=== PATIENT | female | born 1975 | race Caucasian/White ===

== ENCOUNTER 2017-08-12 18:30 | Emergency (ER) | payer OTHER ==
[2017-08-12] MEDS ORDERED: LIDOCAINE 1% MPF 5 ML VIAL ONE (20:24)
[2017-08-12] MEDS ORDERED: ONDANSETRON 4 MG (ODT) TAB ONE (20:27)
--- NOTE | 2017-08-12 20:53 | EDPHYS ---
Physician Documentation [facility] Name: Talat Cortez Age: 42 yrs Sex: Female : 1975 Arrival Date: 08/12/2017 Time: 18:33 Bed 11 Private MD: GALEN CHOI ED Physician Valentín Sousa HPI: 08/12 21:04 This 42 yrs old Female presents to ER via Ambulatory with complaints of kb Finger laceration. 21:04 The patient has a laceration related to: handling garbage, broken picture frame, kb occurred at work, and there are no complicating factors. The injury was accidental. The laceration(s) is(are) located on the dorsal aspect of middle phalanx of right middle finger. Onset: The symptoms/episode began/occurred just prior to arrival. Associated signs and symptoms: The patient has no apparent associated signs or symptoms. The patient has not experienced similar symptoms in the past. The patient has not recently seen a physician. 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 - Social history:: Smoking status: Patient/guardian denies using tobacco. ROS: 21:04 Constitutional: Negative for fever, chills, and weight loss, Cardiovascular: Negative kb for chest pain, palpitations, and edema, Respiratory: Negative for shortness of breath, cough, wheezing, and pleuritic chest pain, Abdomen/GI: Negative for abdominal pain, nausea, vomiting, diarrhea, and constipation, Neuro: Negative for headache, weakness, numbness, tingling, and seizure. 21:04 Skin: Positive for laceration(s), of the dorsal aspect of middle phalanx of right middle finger. Exam: 21:04 Constitutional: This is a well developed, well nourished patient who is awake, alert, kb and in no acute distress. Head/Face: Normocephalic, atraumatic. Chest/axilla: Normal chest wall appearance and motion. Nontender with no deformity. No lesions are appreciated. Cardiovascular: Regular rate and rhythm with a normal S1 and S2. No gallops, murmurs, or rubs. Normal PMI, no JVD. No pulse deficits. Respiratory: Lungs have equal breath sounds bilaterally, clear to auscultation and percussion. No rales, rhonchi or wheezes noted. No increased work of breathing, no retractions or nasal flaring. Abdomen/GI: Soft, non-tender, with normal bowel sounds. No distension or tympany. No guarding or rebound. No evidence of tenderness throughout. Neuro: Awake and alert, GCS 15, oriented to person, place, time, and situation. Cranial nerves II-XII grossly intact. Motor strength 5/5 in all extremities. Sensory grossly intact. Cerebellar exam normal. Normal gait. 21:04 Skin: injury, laceration(s), the wound is approximately 2.5 cm(s), of the dorsal aspect of middle phalanx of right middle finger, that can be described as clean, no foreign body, irregular, without bleeding. Vital Signs: 19:08 BP 115 / 78; Pulse 81; Resp 16; Temp 97.6; Pulse Ox 97% on R/A; Weight 79.38 kg; Height aa1 5 ft. 6 in. (167.64 cm); 19:08 Body Mass Index 28.25 (79.38 kg, 167.64 cm) aa1 Laceration: 20:51 Wound Repair of 2.5cm ( 1.0in ) subcutaneous laceration to dorsal aspect of middle kb phalanx of right middle finger. Irregularly shaped.. Distal neuro/vascular/tendon intact. Anesthesia: Wound infiltrated with 2 mls of 1% lidocaine. Wound prep: Moderate cleansing with hibiclenz by me, Wound irrigation with saline by ga. Skin closed with 4 5-0 Prolene using interrupted sutures and sterile technique. Dressed with Neosporin, bandaid. Patient tolerated well. MDM: 19:41 Patient medically screened. kb 20:51 Data reviewed: vital signs, nurses notes. Data interpreted: Pulse oximetry: on room air kb is 97 %. Interpretation: normal. Counseling: I had a detailed discussion with the patient and/or guardian regarding: the historical points, exam findings, and any diagnostic results supporting the discharge/admit diagnosis, the need for outpatient follow up, a family practitioner, to return to the emergency department if symptoms worsen or persist or if there are any questions or concerns that arise at home. 08/12 20:07 Order name: Prolene, Sutures; Complete Time: 20:48 kb 08/12 20:07 Order name: Dressing - Wound; Complete Time: 20:47 kb 08/12 20:07 Order name: Gloves, Sterile; Complete Time: 20:47 kb 08/12 20:07 Order name: Setup Suture Tray; Complete Time: 20:47 kb Administered Medications: 20:48 Drug: Lidocaine (1 %) 1 vials {Note: used by OPEN WINDER at bedside.} Volume: 5 ml; Route: lk1 Infiltration; 21:13 Follow up: Response: No adverse reaction lk1 Disposition: 08/13 00:01 Co-signature as Attending Physician, Valentín Sousa MD I agree with the assessment and kdr plan of care. Disposition: 08/12/17 20:52 Discharged to Home. Impression: Laceration without foreign body of right middle finger without damage to nail. - Condition is Stable. - Discharge Instructions: Laceration Care, Adult, [id number]. - Medication Reconciliation Form, Thank You Letter, Antibiotic Education, Prescription Opioid Use form. - Follow up: Emergency Department; When: As needed; Reason: Worsening of condition. Follow up: Private Physician; When: 2 - 3 days; Reason: Recheck today's complaints, Continuance of care, Re-evaluation by your physician. - Notes: Have sutures removed in 10 days Keep clean and dry Watch for signs of infection as discussed Signatures: Laurel Velez, MIGUEL ALFORD-Yudy Shaffer, RN RN aa1 Valentín Sousa MD MD [facility] Milvia Cesar, RN RN lk1
--- NOTE | 2017-08-12 20:53 | ER ---
Nurse's Notes [facility] Name: Talat Cortez Age: 42 yrs Sex: Female : 1975 Arrival Date: 08/12/2017 Time: 18:33 Bed 11 Private MD: GALEN CHOI Diagnosis: Laceration without foreign body of right middle finger without damage to nail Presentation: 08/12 19:05 Presenting complaint: Patient states: pt cut her R middle finger on a broken piece of aa1 glass. Laceration noted with bleeding controlled. Transition of care: patient was not received from another setting of care. Onset of symptoms was August 12, 2017. Initial Sepsis Screen: Does the patient meet any 2 criteria? No. Patient's initial sepsis screen is negative. Does the patient have a suspected source of infection? No. Patient's initial sepsis screen is negative. Care prior to arrival: None. 19:05 Method Of Arrival: Ambulatory aa1 19:05 Acuity: LAVELL 4 aa1 Triage Assessment: 19:08 General: Appears in no apparent distress. comfortable, Behavior is calm, cooperative, aa1 appropriate for age. 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 - Social history:: Smoking status: Patient/guardian denies using tobacco. Screenin:12 Abuse screen: Denies threats or abuse. Denies injuries from another. Nutritional lk1 screening: No deficits noted. Tuberculosis screening: No symptoms or risk factors identified. Fall Risk None identified. Assessment: 20:00 General: Appears in no apparent distress. Behavior is cooperative, appropriate for age, lk1 anxious. Pain: Complains of pain in right hand Pain currently is 3 out of 10 on a pain scale. Neuro: Level of Consciousness is awake, alert, obeys commands, Oriented to person, place, time, situation. Cardiovascular: Capillary refill is brisk Patient's skin is warm and dry. Respiratory: Airway is patent Respiratory effort is even, unlabored, Respiratory pattern is regular, symmetrical. Derm: Wound noted right hand. Injury Description: Laceration sustained to dorsal aspect of middle phalanx of right middle finger is clean, 0.5 to 2.5 cm long, not bleeding, was sustained 30-60 minutes ago. a small amount of bleeding noted at this time. Vital Signs: 19:08 BP 115 / 78; Pulse 81; Resp 16; Temp 97.6; Pulse Ox 97% on R/A; Weight 79.38 kg; Height aa1 5 ft. 6 in. (167.64 cm); 19:08 Body Mass Index 28.25 (79.38 kg, 167.64 cm) aa1 ED Course: 18:33 Patient arrived in ED. mr 18:33 GALEN CHOI is Private Physician. mr 19:07 Triage completed. aa1 19:08 Arm band placed on left wrist. Patient placed in waiting room, Patient notified of wait aa1 time. 19:31 Laurel Velez FNP-C is [facility]. kb 19:31 Valentín Sousa MD is Attending Physician. kb 20:22 Milvia Cesar, RORY is Primary Nurse. lk1 21:12 Assist provider with laceration repair on dorsal aspect of middle phalanx of right lk1 middle finger that was 2.5 cm. or less using sutures. Set up tray. Performed by Laurel RIVERA Dressed with band aid, Neosporin, Patient tolerated well. Patient did not have IV access during this emergency room visit. 21:15 Patient has correct armband on for positive identification. Bed in low position. Call lk1 light in reach. Adult w/ patient. Administered Medications: 20:48 Drug: Lidocaine (1 %) 1 vials {Note: used by PLASTIC MACHINE OPERATOR at bedside.} Volume: 5 ml; Route: lk1 Infiltration; 21:13 Follow up: Response: No adverse reaction lk1 Outcome: 20:52 Discharge ordered by . kb 21:14 Discharged to home ambulatory, with family. lk1 21:14 Condition: good 21:14 Discharge instructions given to patient, family, Instructed on discharge instructions, follow up and referral plans. medication usage, safety practices, wound care, Demonstrated understanding of instructions, follow-up care, medications, wound care. 21:15 Patient left the ED. lk1 Signatures: Laurel Velez FNP-C BUTCHER SUPERVISOR-Ckb Yudy Waggoner, RN RN aa1 Phoebe Montejo Leah, RN RN lk1
== END 2017-08-12 21:15 | disposition home or self-care (01) ==
LOC: ER 18:30
PROC: 0JQJ0ZZ Repair Right Hand Subcutaneous Tissue and Fascia, Open Approach (ICD-10-PCS; principal; 2017-08-12)
DX: S61.212A Laceration without foreign body of right middle finger without damage to nail, initial encounter (principal); W25.XXXA Contact with sharp glass, initial encounter; Y93.9 Activity, unspecified; Y92.9 Unspecified place or not applicable; Y99.0 Civilian activity done for income or pay
CPT/HCPCS: 99283

== ENCOUNTER 2017-10-13 17:52 | Emergency (ER) | payer OTHER ==
[2017-10-13] MEDS ORDERED: ONDANSETRON 4 MG (ODT) TAB ONE (18:56)
[2017-10-13 19:27] LABS: Urine Blood NEGATIVE (NEG); Urine Glucose NEGATIVE (NEG); Urine Protein NEGATIVE (NEG); Urine Specific Gravity >1.030 (1.005-1.030); Urine pH 6.5 (5.0-7.0)
--- NOTE | 2017-10-13 20:18 | EDPHYS ---
Physician Documentation [facility] Name: Talat Cortez Age: 42 yrs Sex: Female : 1975 Arrival Date: 10/13/2017 Time: 17:59 Bed 27 Private MD: GALEN CHOI ED Physician Josse Luis HPI: 10/13 18:47 This 42 yrs old Female presents to ER via Ambulatory with complaints of cp Nausea, Sore Throat, Dizziness. 18:47 The patient presents to the emergency department with nausea, that is mild. cp 18:47 Onset: The symptoms/episode began/occurred last night. Associated signs and symptoms: cp Pertinent negatives: abdominal pain, constipation, diarrhea, fever, vomiting. 18:47 Severity of symptoms: in the emergency department the symptoms are unchanged despite cp home interventions. 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 - Social history:: Smoking status: Patient/guardian denies using tobacco. - Ebola Screening: : No symptoms or risks identified at this time. ROS: 18:50 Constitutional: Negative for body aches, chills, fever, poor PO intake. cp 18:50 Eyes: Negative for injury, pain, redness, and discharge. cp 18:50 ENT: Positive for sore throat, Negative for drainage from ear(s), ear pain, difficulty swallowing, difficulty handling secretions. 18:50 Respiratory: Negative for cough. 18:50 Abdomen/GI: Positive for nausea, Negative for abdominal pain, vomiting, diarrhea, constipation. 18:50 Skin: Negative for cellulitis, rash. 18:50 Neuro: Positive for dizziness, Negative for altered mental status, headache, weakness. 18:50 All other systems are negative. Exam: 19:00 Constitutional: The patient appears in no acute distress, alert, awake, non-toxic, well cp developed, well nourished. 19:00 Head/Face: Normocephalic, atraumatic. cp 19:00 Eyes: Periorbital structures: appear normal, Conjunctiva: normal, no exudate, no injection, Sclera: no appreciated abnormality, Lids and lashes: appear normal, bilaterally. 19:00 ENT: External ear(s): are unremarkable, Ear canal(s): are normal, clear, TM's: bulging, is not appreciated, bilaterally, dullness, bilaterally, erythema, is not appreciated, bilaterally, Nose: is normal, Mouth: Lips: moist, Oral mucosa: pink and intact, moist, Posterior pharynx: Airway: normal, Tonsils: are normal in appearance, Uvula: midline, swelling, is not appreciated, erythema, is not appreciated, exudate, is not appreciated, Voice: is normal. 19:00 Neck: ROM/movement: is normal, is supple, without pain, no range of motions limitations, no meningismus, no nuchal rigidity, Lymph nodes: no appreciated lymphadenopathy. 19:00 Chest/axilla: Inspection: normal, Palpation: is normal, no crepitus, no tenderness. 19:00 Cardiovascular: Rate: normal, Rhythm: regular. 19:00 Respiratory: the patient does not display signs of respiratory distress, Respirations: normal, no use of accessory muscles, no retractions, no splinting, no tachypnea, labored breathing, is not present, Breath sounds: are clear throughout, no decreased breath sounds, no stridor, no wheezing. 19:00 Abdomen/GI: Exam negative for discomfort, distension, guarding, Inspection: abdomen appears normal. 19:00 Skin: cellulitis, is not appreciated, no rash present. Vital Signs: 18:10 BP 118 / 72; Pulse 73; Resp 16 S; Temp 98.5(TE); Pulse Ox 100% on R/A; Weight 80.74 kg aa5 (R); Height 5 ft. 6 in. (167.64 cm) (R); 20:36 BP 124 / 74; Pulse 72; Resp 16; Pulse Ox 100% on R/A; rk2 18:10 Body Mass Index 28.73 (80.74 kg, 167.64 cm) aa5 MDM: 18:26 Patient medically screened. cp 19:00 Differential diagnosis: gastritis, viral gastroenteritis, gastroenteritis, influenza, cp strep. 20:16 Data reviewed: vital signs, nurses notes, lab test result(s), and as a result, I will cp discharge patient. 20:16 Counseling: I had a detailed discussion with the patient and/or guardian regarding: the cp historical points, exam findings, and any diagnostic results supporting the discharge/admit diagnosis, lab results, the need for outpatient follow up, a family practitioner, to return to the emergency department if symptoms worsen or persist or if there are any questions or concerns that arise at home. 10/13 18:09 Order name: Strep; Complete Time: 20:16 snw 10/13 18:43 Order name: Influenza Screen (a \T\ B); Complete Time: 20:16 cp 10/13 19:21 Order name: Urine Dipstick--Ancillary (enter results); Complete Time: 19:42 rg2 10/13 19:21 Order name: Urine --Ancillary (enter results); Complete Time: 19:42 rg2 10/13 19:56 Order name: Throat Culture [facility] 10/13 18:43 Order name: Urine Dipstick-Ancillary (obtain specimen); Complete Time: 19:16 10/13 18:43 Order name: Urine Test (obtain specimen); Complete Time: 19:16 cp Administered Medications: 18:54 Drug: Zofran 4 mg Route: PO; rk2 20:36 Follow up: Response: No adverse reaction; Nausea is decreased rk2 Disposition: 10/14 16:20 Co-signature as Attending Physician, Josse Luis MD I agree with the assessment and [facility] plan of care. Disposition: 10/13/17 20:17 Discharged to Home. Impression: Acute pharyngitis. - Condition is Stable. - Discharge Instructions: Nausea, Adult, Pharyngitis. - Prescriptions for Zofran 4 mg Oral Tablet - take 1 tablet by ORAL route every 12 hours As needed; 20 tablet. - Medication Reconciliation Form, Thank You Letter, Antibiotic Education, Prescription Opioid Use form. - Follow up: Private Physician; When: 1 - 2 days; Reason: Recheck today's complaints. - Problem is new. - Symptoms have improved. Signatures: Dispatcher [employer] Josse Marcus MD MD cha Calderon, Audri, RN RN aa5 Josse Morley PA PA cp Kidder, Rhonda RN RN rk2 Corrections: (The following items were deleted from the chart) 10/13 20:38 20:17 10/13/2017 20:17 Discharged to Home. Impression: Acute pharyngitis. Condition is rk2 Stable. Forms are Medication Reconciliation Form, Thank You Letter, Antibiotic Education, Prescription Opioid Use. Follow up: Private Physician; When: 1 - 2 days; Reason: Recheck today's complaints. Problem is new. Symptoms have improved. cp
--- NOTE | 2017-10-13 20:18 | ER ---
Nurse's Notes [facility] Name: Talat Cortez Age: 42 yrs Sex: Female : 1975 Arrival Date: 10/13/2017 Time: 17:59 Bed 27 Private MD: GALEN CHOI Diagnosis: Acute pharyngitis Presentation: 10/13 18:09 Presenting complaint: Patient states: sore throat, nausea, and body aches that began aa5 last night. Transition of care: patient was not received from another setting of care. Onset of symptoms was September 2017. Risk Assessment: Do you want to hurt yourself or someone else? Patient reports no desire to harm self or others. Initial Sepsis Screen: Does the patient meet any 2 criteria? No. Patient's initial sepsis screen is negative. Does the patient have a suspected source of infection? No. Patient's initial sepsis screen is negative. Care prior to arrival: None. 18:09 Method Of Arrival: Ambulatory aa5 18:09 Acuity: LAVELL 4 aa5 Triage Assessment: 18:32 General: Appears in no apparent distress. well nourished, Behavior is calm, rk2 cooperative. Pain: Complains of pain in throat. EENT: Throat is pink. Neuro: Level of Consciousness is alert, obeys commands, Oriented to person, place, time, situation. Respiratory: Airway is patent Respiratory effort is even, unlabored, Respiratory pattern is regular, symmetrical. GI: Reports nausea. Derm: Skin is pink, warm \T\ dry. 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 - Social history:: Smoking status: Patient/guardian denies using tobacco. - Ebola Screening: : No symptoms or risks identified at this time. Screenin:31 Abuse screen: Denies threats or abuse. Nutritional screening: No deficits noted. rk2 Tuberculosis screening: No symptoms or risk factors identified. Fall Risk None identified. Vital Signs: 18:10 BP 118 / 72; Pulse 73; Resp 16 S; Temp 98.5(TE); Pulse Ox 100% on R/A; Weight 80.74 kg aa5 (R); Height 5 ft. 6 in. (167.64 cm) (R); 20:36 BP 124 / 74; Pulse 72; Resp 16; Pulse Ox 100% on R/A; rk2 18:10 Body Mass Index 28.73 (80.74 kg, 167.64 cm) aa5 ED Course: 17:59 Patient arrived in ED. mr 18:00 GALEN CHOI is Private Physician. mr 18:09 Arm band placed on. aa5 18:10 Triage completed. aa5 18:11 Fadumo Barrios, RN is Primary Nurse. rk2 18:26 Josse Morley PA is PHCP. cp 18:26 Josse Luis MD is Attending Physician. cp 18:32 Patient has correct armband on for positive identification. Bed in low position. Call rk2 light in reach. 20:38 No provider procedures requiring assistance completed. Patient did not have IV access rk2 during this emergency room visit. Administered Medications: 18:54 Drug: Zofran 4 mg Route: PO; rk2 20:36 Follow up: Response: No adverse reaction; Nausea is decreased rk2 Outcome: 20:17 Discharge ordered by . cp 20:38 Discharged to home ambulatory. rk2 20:38 Condition: improved 20:38 Discharge instructions given to patient, Prescriptions given X 1. 20:38 Patient left the ED. rk2 Signatures: Phoebe Montejo mr AdamMarva, RN RN [facility] Josse Morley PA PA cp Fadumo Barrios, RN RN rk2
== END 2017-10-13 20:38 | disposition home or self-care (01) ==
LOC: ER 17:52
DX: J02.9 Acute pharyngitis, unspecified (principal); R11.0 Nausea; R42 Dizziness and giddiness
CPT/HCPCS: 81003; 81025; 87070; 87081; 87804; 99283

== ENCOUNTER 2018-01-30 08:00 | Emergency (ER) | payer OTHER ==
[2018-01-30] MEDS ORDERED: NA CHLORIDE 0.9% 1,000 ML ONE (08:41)
[2018-01-30] MEDS ORDERED: ONDANSETRON 4 MG/2 ML VIAL ONE ×2 (08:41→11:08)
[2018-01-30] MEDS ORDERED: FAMOTIDINE 20 MG/2 ML VIAL IV ONE (08:41)
[2018-01-30] MEDS ORDERED: MORPHINE 4 MG/ML SYR ONE (08:41)
[2018-01-30 09:01] LABS: Absolute Lymphocytes (CBC) 1.9 K/uL (0.7-4.9); Absolute Monocytes 0.5 K/uL (0.1-1.3); Absolute Neutrophil 4.7 K/uL (1.8-8.0); Basophils % 0.6 % (0-1.3); Hematocrit 41.4 % (36.0-45.0); Lymphocytes % 25.9 % (15.3-44.8); MCH 30.6 pg (27.0-35.0); MCV 88.4 fL (80-100); MPV 9.6 fL (7.6-11.3); Monocytes % 6.7 % (3.3-12.3); RBC Red Blood Cell Count 4.68 M/uL (3.86-4.86)
[2018-01-30 09:25] LABS: ALT/SGPT 24 U/L (12-78); AST/SGOT 15 U/L (15-37); Albumin 3.7 g/dL (3.4-5.0); Alkaline Phosphatase 50 U/L (45-117); BUN Blood Urea Nitrogen 8 mg/dL (7-18); Bicarbonate 30 mmol/L (21-32); Bilirubin Direct < 0.1 mg/dL (0-0.2); Bilirubin Total 0.3 mg/dL (0.2-1.0); Glucose Level 106 mg/dL (74-106); Lipase 149 U/L (73-393); Potassium 3.8 mmol/L (3.5-5.1); Sodium Level 143 mmol/L (136-145)
--- NOTE | 2018-01-30 10:09 | RAD REPORT ---
EXAM DESCRIPTION: CT - Abdomen Pelvis W Contrast - 01/30/2018 9:41 am CLINICAL HISTORY: Abdominal pain with vomiting and diarrhea for 2 days COMPARISON: none. TECHNIQUE: Computed axial tomography of the abdomen pelvis was obtained. 100 cc Isovue-300 was admin istered intravenously. Oral contrast was not requested which limits evaluation of bowel. All CT scans are performed using dose optimization technique as appropriate and may include automated exposure control or mA/KV adjustment according to patient size. FINDINGS: The liver, spleen, pancreas, adrenal and kidneys appear unremarkable. There is no evidence of diverticulitis. The appendix is normal caliber. It contains contrast. An IUD is in place. A 22 millimeter left ovarian cyst is present without significant free fluid. The wall of a loop of small bowel within the central mid to lower abdomen is thickened. IMPRESSION: Thickening of the wall of a loop of small bowel within the central mid to lower abdomen may indicate inflammation 22 millimeter left ovarian cyst without significant free-fluid.
[2018-01-30] MEDS ORDERED: KETOROLAC 30 MG/ML INJ ONE (10:19)
[2018-01-30] MEDS ORDERED: FENTANYL CITR 100 MCG/2 ML ONE (11:08)
--- NOTE | 2018-01-30 11:13 | EDPHYS ---
Physician Documentation [facility] Name: Talat Cortez Age: 42 yrs Sex: Female : 1975 Arrival Date: 01/30/2018 Time: 08:03 Bed 16 Private MD: GALEN CHOI ED Physician Valentín Sousa HPI: 01/30 08:47 This 42 yrs old Female presents to ER via Ambulatory with complaints of kdr Nausea/Vomiting, Headache. 08:47 The patient presents to the emergency department with nausea, that is moderate, kdr vomiting, that is intermittent, diarrhea, that is intermittent, abdominal pain, of the epigastric area, right upper quadrant and left upper quadrant. Onset: The symptoms/episode began/occurred gradually, 2 day(s) ago. Possible causes: unknown. The symptoms are aggravated by food , The symptoms are alleviated by nothing. Associated signs and symptoms: Pertinent positives: abdominal pain, anorexia, diarrhea, nausea, vomiting, Pertinent negatives: belching, constipation, dysuria, fever, GI bleeding, hematuria, vaginal discharge. Severity of symptoms: At their worst the symptoms were moderate severe just prior to arrival, in the emergency department the symptoms have improved. The patient has experienced similar episodes in the past, several times, but today's symptoms are worse, more frequent. The patient has not recently seen a physician. 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 - Social history:: Smoking status: Patient/guardian denies using tobacco, Patient/guardian denies using alcohol. - Ebola Screening: : No symptoms or risks identified at this time. ROS: 08:47 Constitutional: Negative for fever, chills, and weight loss, Eyes: Negative for injury, kdr pain, redness, and discharge, Neck: Negative for injury, pain, and swelling, Cardiovascular: Negative for chest pain, palpitations, and edema, Respiratory: Negative for shortness of breath, cough, wheezing, and pleuritic chest pain, Back: Negative for injury and pain, : Negative for injury, bleeding, discharge, and swelling, MS/Extremity: Negative for injury and deformity, Skin: Negative for injury, rash, and discoloration, Psych: Negative for depression, anxiety, suicide ideation, homicidal ideation, and hallucinations, Allergy/Immunology: Negative for hives, rash, and allergies, Endocrine: Negative for neck swelling, polydipsia, polyuria, polyphagia, and marked weight changes, Hematologic/Lymphatic: Negative for swollen nodes, abnormal bleeding, and unusual bruising. 08:47 Abdomen/GI: Positive for abdominal pain, nausea and vomiting, Negative for constipation, abdominal cramps, abdominal distension, anorexia, dysphagia, hematemesis, black/tarry stool, rectal pain, rectal bleeding, bowel incontinence. 08:47 Neuro: Positive for headache, Negative for altered mental status, dizziness, hearing loss, loss of consciousness, seizure activity, speech changes, syncope, tremor, visual changes, weakness. Exam: 08:47 Constitutional: This is a well developed, well nourished patient who is awake, alert, kdr and in mild distress. Head/Face: Normocephalic, atraumatic. Eyes: Pupils equal round and reactive to light, extra-ocular motions intact. Lids and lashes normal. Conjunctiva and sclera are non-icteric and not injected. Cornea within normal limits. Periorbital areas with no swelling, redness, or edema. Neck: Trachea midline, no thyromegaly or masses palpated, and no cervical lymphadenopathy. Supple, full range of motion without nuchal rigidity, or vertebral point tenderness. No Meningismus. Chest/axilla: Normal chest wall appearance and motion. Nontender with no deformity. No lesions are appreciated. Cardiovascular: Regular rate and rhythm with a normal S1 and S2. No gallops, murmurs, or rubs. Normal PMI, no JVD. No pulse deficits. Respiratory: Lungs have equal breath sounds bilaterally, clear to auscultation and percussion. No rales, rhonchi or wheezes noted. No increased work of breathing, no retractions or nasal flaring. Back: No spinal tenderness. No costovertebral tenderness. Full range of motion. Skin: Warm, dry with normal turgor. Normal color with no rashes, no lesions, and no evidence of cellulitis. MS/ Extremity: Pulses equal, no cyanosis. Neurovascular intact. Full, normal range of motion. Neuro: Awake and alert, GCS 15, oriented to person, place, time, and situation. Cranial nerves II-XII grossly intact. Motor strength 5/5 in all extremities. Sensory grossly intact. Cerebellar exam normal. Normal gait. Psych: Awake, alert, with orientation to person, place and time. Behavior, mood, and affect are within normal limits. 08:47 Abdomen/GI: Inspection: abdomen appears normal, Bowel sounds: active, Palpation: soft, mild abdominal tenderness, in the epigastric area, right upper quadrant and left upper quadrant. Vital Signs: 08:16 BP 104 / 58; Pulse 76; Resp 22; Temp 98.5(O); Pulse Ox 100% on R/A; Weight 79.38 kg; sv Height 5 ft. 6 in. (167.64 cm); Pain 9/10; 09:00 BP 92 / 71; Pulse 58; Resp 16; Pulse Ox 100% ; sv 11:10 BP 109 / 63; Pulse 54; Resp 16; Pulse Ox 100% on R/A; aj1 08:16 Body Mass Index 28.25 (79.38 kg, 167.64 cm) sv MDM: 08:47 Data reviewed: vital signs, nurses notes, lab test result(s), radiologic studies. kdr Counseling: I had a detailed discussion with the patient and/or guardian regarding: the historical points, exam findings, and any diagnostic results supporting the discharge/admit diagnosis, lab results, radiology results, the need for outpatient follow up. 11:11 Patient medically screened. [facility] 01/30 08:24 Order name: Basic Metabolic Panel; Complete Time: 10: kdr 01/30 08:24 Order name: CBC with Diff; Complete Time: 10: kdr 01/30 08:24 Order name: Creatinine for Radiology; Complete Time: 10: kdr 01/30 08:24 Order name: Hepatic Function; Complete Time: 10: kdr 01/30 08:24 Order name: Lipase; Complete Time: 10: kdr 01/30 08:26 Order name: CT Abd/Pelvis - W/Contrast; Complete Time: 10:19 kdr 01/30 08:24 Order name: IV Saline Lock; Complete Time: 09: kdr 01/30 08:24 Order name: Labs collected and sent; Complete Time: :08 kdr Administered Medications: 08:50 Drug: NS 0.9% 1000 ml Route: IV; Rate: 1 bolus; Site: left antecubital; sv 08:50 Drug: Zofran 4 mg Route: IVP; Site: left antecubital; sv 09:15 Follow up: Response: No adverse reaction sv 08:52 Drug: morphine 4 mg Route: IVP; Site: left antecubital; sv 09:15 Follow up: Response: No adverse reaction sv 08:54 Drug: Pepcid 20 mg Route: IVP; Site: left antecubital; sv 09:15 Follow up: Response: No adverse reaction sv 10:19 Drug: TORadol 30 mg Route: IVP; Site: left antecubital; aj1 11:06 Follow up: Response: No adverse reaction; Pain is decreased aj1 11:06 Drug: fentaNYL (PF) 50 mcg Route: IVP; Site: left antecubital; aj1 11:06 Drug: Zofran 4 mg Route: IVP; Site: left antecubital; aj1 Disposition: 01/30/18 11:11 Discharged to Home. Impression: Abdominal and pelvic pain, Colitis, Headache. - Condition is Stable. - Discharge Instructions: Nausea and Vomiting, Adult, [id number], Abdominal Pain, Adult, [id number], General Headache Without Cause, [id number], Colitis. - Prescriptions for Cipro 500 mg Oral Tablet - take 1 tablet by ORAL route every 12 hours for 7 days; 14 tablet. Flagyl 500 mg Oral Tablet - take 1 tablet by ORAL route every 6 hours for 7 days; 28 tablet. Pepcid 20 mg Oral Tablet - take 1 tablet by ORAL route every 12 hours for 10 days; 20 tablet. Zofran 4 mg Oral Tablet - take 1 tablet by ORAL route every 4-6 hours As needed; 16 tablet. Tylenol- Codeine #3 300-30 mg Oral Tablet - take 2 tablets by ORAL route every 6 hours As needed Take one to two tablets PO Q 4-6 hrs PRN pain; 20 tablet. - Medication Reconciliation Form, Thank You Letter, Antibiotic Education form. - Follow up: Private Physician; When: 2 - 3 days; Reason: If symptoms return, Further diagnostic work-up, Recheck today's complaints, Continuance of care, Re-evaluation by your physician. - Problem is new. - Symptoms have improved. Signatures: Dispatcher [employer] EDMS Digna Basurto RN RN aj1 Daina Jarrett RN RN sv Rittger, Kevin, MD MD [facility] Tori Borrego RN RN hb Corrections: (The following items were deleted from the chart) 11:28 11:11 01/30/2018 11:11 Discharged to Home. Impression: Abdominal and pelvic pain; hb Colitis; Headache. Condition is Stable. Forms are Medication Reconciliation Form, Thank You Letter, Antibiotic Education, Prescription Opioid Use. Follow up: Private Physician; When: 2 - 3 days; Reason: If symptoms return, Further diagnostic work-up, Recheck today's complaints, Continuance of care, Re-evaluation by your physician. Problem is new. Symptoms have improved. kdr
--- NOTE | 2018-01-30 11:13 | ER ---
Nurse's Notes [facility] Name: Talat Cortez Age: 42 yrs Sex: Female : 1975 Arrival Date: 01/30/2018 Time: 08:03 Bed 16 Private MD: GALEN CHOI Diagnosis: Abdominal and pelvic pain;Colitis;Headache Presentation: 01/30 08:14 Presenting complaint: Patient states: n/v/d/migraine, photophobia and neck \T\ back pain sv x 2 days. Transition of care: patient was not received from another setting of care. Onset of symptoms was January 28, 2018. Risk Assessment: Do you want to hurt yourself or someone else? Patient reports no desire to harm self or others. Initial Sepsis Screen: Does the patient meet any 2 criteria? No. Patient's initial sepsis screen is negative. Does the patient have a suspected source of infection? No. Patient's initial sepsis screen is negative. Care prior to arrival: None. 08:14 Method Of Arrival: Ambulatory sv 08:14 Acuity: LAVELL 3 sv Triage Assessment: 08:15 General: Appears in no apparent distress. uncomfortable, well developed, Behavior is sv cooperative, appropriate for age, crying. Pain: Complains of pain in face and left upper quadrant and right upper quadrant and epigastric area Pain currently is 9 out of 10 on a pain scale. Quality of pain is described as pressure, throbbing, Pain began 2-3 days ago. Is continuous, Aggravated by light Noted to be crying, Also complains of photophobia. EENT: No signs and/or symptoms were reported regarding the EENT system. Neuro: Level of Consciousness is awake, alert, obeys commands, Oriented to person, place, time, situation, Moves all extremities. Full function Gait is steady, Speech is normal, Facial symmetry appears normal, Reports headache photophobia. Respiratory: Respiratory effort is even, unlabored, Respiratory pattern is regular, symmetrical. GI: Reports diarrhea, nausea, vomiting. Derm: Skin is pink, warm \T\ dry. 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 - Social history:: Smoking status: Patient/guardian denies using tobacco, Patient/guardian denies using alcohol. - Ebola Screening: : No symptoms or risks identified at this time. Screenin:17 Abuse screen: Denies threats or abuse. Denies injuries from another. Nutritional sv screening: No deficits noted. Tuberculosis screening: No symptoms or risk factors identified. Fall Risk None identified. Assessment: 09:48 Reassessment: Patient appears in no apparent distress at this time. Patient and/or sv family updated on plan of care and expected duration. Pain level reassessed. Patient is alert, oriented x 3, equal unlabored respirations, skin warm/dry/pink. 10:18 Reassessment: Patient reports that her headache is getting severe again. Notified Dr. wojciech Sousa, order received. 10:20 General: Appears in no apparent distress. uncomfortable, Behavior is calm, cooperative, aj1 appropriate for age. Pain: Pain currently is 9 out of 10 on a pain scale. Neuro: Level of Consciousness is awake, alert, obeys commands, Oriented to person, place, time, situation, Speech is normal, Facial symmetry appears normal, Reports headache photophobia. Cardiovascular: Patient's skin is warm and dry. Respiratory: Airway is patent Respiratory effort is even, unlabored, Respiratory pattern is regular, symmetrical. GI: Abdomen is non-distended, Reports nausea. : No signs and/or symptoms were reported regarding the genitourinary system. EENT: No signs and/or symptoms were reported regarding the EENT system. Derm: No signs and/or symptoms reported regarding the dermatologic system. Skin is pink, warm \T\ dry. normal. Musculoskeletal: No signs and/or symptoms reported regarding the musculoskeletal system. Circulation, motion, and sensation intact. 11:07 Reassessment: Patient appears in no apparent distress at this time. Patient and/or aj1 family updated on plan of care and expected duration. Pain level reassessed. Patient is alert, oriented x 3, equal unlabored respirations, skin warm/dry/pink. Patient states that her pain has diminished since administration or IV toradol, currently rates her pain at a 4/10. States she would like to go ahead and take ordered Fentanyl and Zofran to get headache under control completely. Vital Signs: 08:16 BP 104 / 58; Pulse 76; Resp 22; Temp 98.5(O); Pulse Ox 100% on R/A; Weight 79.38 kg; sv Height 5 ft. 6 in. (167.64 cm); Pain 9/10; 09:00 BP 92 / 71; Pulse 58; Resp 16; Pulse Ox 100% ; sv 11:10 BP 109 / 63; Pulse 54; Resp 16; Pulse Ox 100% on R/A; aj1 08:16 Body Mass Index 28.25 (79.38 kg, 167.64 cm) sv ED Course: 08:03 Patient arrived in ED. as 08:04 GALEN CHOI is Private Physician. as 08:11 Valentín Sousa MD is Attending Physician. kdr 08:13 Daina Jarrett, RN is Primary Nurse. sv 08:15 Triage completed. sv 08:17 Arm band placed on. sv 08:17 Patient has correct armband on for positive identification. Bed in low position. Pulse sv ox on. NIBP on. Door closed. Lights dimmed. Warm blanket given. Head of bed elevated. 08:45 Initial lab(s) drawn, by me, sent to lab. Inserted saline lock: 20 gauge in left sv antecubital area, using aseptic technique. Blood collected. Flushed left antecubital with 5 ml normal saline. 09:40 CT completed. Patient tolerated procedure well. Patient moved to CT via wheelchair. Patient moved back from CT. 09:41 CT Abd/Pelvis - W/Contrast In Process Unspecified. EDMS 09:48 Awaiting re-evaluation by ER provider. sv 10:00 Report given to Digna VALADEZ. sv 11:27 No provider procedures requiring assistance completed. IV discontinued, intact, hb bleeding controlled, No redness/swelling at site. Pressure dressing applied. 19:04 Primary Nurse role handed off by Daina Jarrett, RORY sv Administered Medications: 08:50 Drug: NS 0.9% 1000 ml Route: IV; Rate: 1 bolus; Site: left antecubital; sv 08:50 Drug: Zofran 4 mg Route: IVP; Site: left antecubital; sv 09:15 Follow up: Response: No adverse reaction sv 08:52 Drug: morphine 4 mg Route: IVP; Site: left antecubital; sv 09:15 Follow up: Response: No adverse reaction sv 08:54 Drug: Pepcid 20 mg Route: IVP; Site: left antecubital; sv 09:15 Follow up: Response: No adverse reaction sv 10:19 Drug: TORadol 30 mg Route: IVP; Site: left antecubital; aj1 11:06 Follow up: Response: No adverse reaction; Pain is decreased aj1 11:06 Drug: fentaNYL (PF) 50 mcg Route: IVP; Site: left antecubital; aj1 11:06 Drug: Zofran 4 mg Route: IVP; Site: left antecubital; aj1 Outcome: 11:11 Discharge ordered by . kdr 11:27 Discharged to home ambulatory. hb 11:27 Condition: stable 11:27 Discharge instructions given to patient, Instructed on discharge instructions, follow up and referral plans. medication usage, Demonstrated understanding of instructions, follow-up care, medications, Prescriptions given X x 5 11:28 Patient left the ED. hb Signatures: Dispatcher [employer] EDDigna Valerio RN RN aj1 Daina Jarrett RN RN sv Rittger, Kevin, MD MD kdr Jones, Susan sj Martinez, Amelia as Baxter, Heather, RN RN hb
== END 2018-01-30 11:28 | disposition home or self-care (01) ==
LOC: ER 08:00
DX: K52.9 Noninfective gastroenteritis and colitis, unspecified (principal); R51 Headache
CPT/HCPCS: 36415; 74177; 80048; 80076; 83690; 85025; 96374; 96375; 99284; J2405 ×2; J3010; J7030; Q9967

== ENCOUNTER 2018-11-10 11:29 | Emergency (ER) | payer OTHER ==
--- NOTE | 2018-11-10 12:39 | RAD REPORT ---
EXAM DESCRIPTION: RAD - Foot Right 3 View - 11/10/2018 12:27 pm CLINICAL HISTORY: Pain;Swelling COMPARISON: <Comparisons> FINDINGS: Soft tissue swelling is seen about the great toe. No fracture is clearly seen. Small plant ar calcaneal spur.
--- NOTE | 2018-11-10 13:32 | EDPHYS ---
Physician Documentation [facility] Name: Talat Cortez Age: 43 yrs Sex: Female : 1975 Arrival Date: 11/10/2018 Time: 11:31 Bed 11 Private MD: ED Physician Nixon Amato HPI: 11/10 11:45 This 43 yrs old Female presents to ER via Ambulatory with complaints of Foot rn Injury. 11:45 The patient presents with an injury, pain. The complaints affect the right foot. rn Context: The problem was sustained outdoors, resulted from a heavy object falling, the patient can partially bear weight, the patient is able to ambulate. Onset: The symptoms/episode began/occurred just prior to arrival. Modifying factors: The symptoms are alleviated by nothing, the symptoms are aggravated by weight bearing, movement. Severity of symptoms: At their worst the symptoms were moderate, in the emergency department the symptoms are unchanged. The patient has not experienced similar symptoms in the past. 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 . 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 - Social history:: Smoking status: Patient/guardian denies using tobacco. - Ebola Screening: : No symptoms or risks identified at this time. - Family history:: not pertinent. - Hospitalizations: : No recent hospitalization is reported. ROS: 11:45 Constitutional: Negative for fever, chills, and weight loss, MS/Extremity: + right foot rn injury and swelling Skin: + abrasion to right foot Exam: 11:45 Constitutional: This is a well developed, well nourished patient who is awake, alert, rn and in no acute distress. MS/ Extremity: Pulses equal, no cyanosis. Neurovascular intact. + tenderness right medial mid-foot with mild swelling and abrasion overlying 1st/2nd MT, no evidence of toe or heel injuries. Vital Signs: 11:37 BP 124 / 77; Pulse 91; Resp 18 S; Temp 98.4(TE); Pulse Ox 99% on R/A; Weight 70.31 kg aa5 (R); Height 5 ft. 6 in. (167.64 cm) (R); Pain 6/10; 11:37 Body Mass Index 25.02 (70.31 kg, 167.64 cm) aa5 MDM: 11:41 Patient medically screened. rn 13:30 Differential diagnosis: fracture. Data reviewed: vital signs, nurses notes, radiologic rn studies, plain films, and as a result, I will discharge patient. Counseling: I had a detailed discussion with the patient and/or guardian regarding: the historical points, exam findings, and any diagnostic results supporting the discharge/admit diagnosis, radiology results, the need for outpatient follow up, to return to the emergency department if symptoms worsen or persist or if there are any questions or concerns that arise at home. Special discussion: I discussed with the patient/guardian in detail that at this point there is no indication for admission to the hospital. It is understood, however, that if the symptoms persist or worsen the patient needs to return immediately for re-evaluation. 13:30 Test interpretation: by ED physician or midlevel provider: plain radiologic studies, rn Xray foot negative for acute fracture or dislocation. 11/10 11:45 Order name: XRAY Foot RIGHT 3 View; Complete Time: 13:31 rn 11/10 13:36 Order name: Zenia rn Administered Medications: No medications were administered Disposition: 11/10/18 13:31 Discharged to Home. Impression: Contusion of right foot. - Condition is Stable. - Discharge Instructions: Foot Contusion. - Medication Reconciliation Form, Thank You Letter, Antibiotic Education, Prescription Opioid Use form. - Follow up: Private Physician; When: As needed; Reason: Recheck today's complaints, Re-evaluation by your physician. - Problem is new. - Symptoms have improved. Signatures: Dispatcher [employer] EDAmanda Dee RN RN iw Nieto, Roman, MD MD rn Calderon, Audri, RN RN aa5 Corrections: (The following items were deleted from the chart) 14:15 13:31 11/10/2018 13:31 Discharged to Home. Impression: Contusion of right foot. iw Condition is Stable. Forms are Medication Reconciliation Form, Thank You Letter, Antibiotic Education, Prescription Opioid Use. Follow up: Private Physician; When: As needed; Reason: Recheck today's complaints, Re-evaluation by your physician. Problem is new. Symptoms have improved. rn
--- NOTE | 2018-11-10 13:32 | ER ---
Nurse's Notes [facility] Name: Talat Cortez Age: 43 yrs Sex: Female : 1975 Arrival Date: 11/10/2018 Time: 11:31 Bed 11 Private MD: Diagnosis: Contusion of right foot Presentation: 11/10 11:36 Presenting complaint: Patient states: "I was carrying some stones and my left shoulder aa5 likes to pop out so I dropped them and landed on my right foot". Pt c/o right foot pain and left shoulder pain. Transition of care: patient was not received from another setting of care. Onset of symptoms was November 10, 2018. Risk Assessment: Do you want to hurt yourself or someone else? Patient reports no desire to harm self or others. Initial Sepsis Screen: Does the patient meet any 2 criteria? No. Patient's initial sepsis screen is negative. Does the patient have a suspected source of infection? No. Patient's initial sepsis screen is negative. Care prior to arrival: None. 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 - Social history:: Smoking status: Patient/guardian denies using tobacco. - Ebola Screening: : No symptoms or risks identified at this time. - Family history:: not pertinent. - Hospitalizations: : No recent hospitalization is reported. Screenin:49 Abuse screen: Denies threats or abuse. Nutritional screening: No deficits noted. aa5 Tuberculosis screening: No symptoms or risk factors identified. Fall Risk None identified. Assessment: 11:40 General: Appears uncomfortable, Behavior is calm, cooperative. Pain: Complains of pain aa5 in right foot and left shoulder Pain does not radiate. Quality of pain is described as sharp, Pain began 1 hour ago. Is continuous. Neuro: Level of Consciousness is awake, alert, obeys commands, Oriented to person, place, time, situation. Cardiovascular: Patient's skin is warm and dry. Respiratory: Airway is patent Respiratory effort is even, unlabored, Respiratory pattern is regular, symmetrical. GI: No signs and/or symptoms were reported involving the gastrointestinal system. : No signs and/or symptoms were reported regarding the genitourinary system. EENT: No signs and/or symptoms were reported regarding the EENT system. Derm: Skin is pink, warm \\T\\ dry. Musculoskeletal: Reports pain in right foot and left shoulder. Vital Signs: 11:37 BP 124 / 77; Pulse 91; Resp 18 S; Temp 98.4(TE); Pulse Ox 99% on R/A; Weight 70.31 kg aa5 (R); Height 5 ft. 6 in. (167.64 cm) (R); Pain 6/10; 11:37 Body Mass Index 25.02 (70.31 kg, 167.64 cm) aa5 ED Course: 11:31 Patient arrived in ED. as 11:36 Triage completed. aa5 11:36 Arm band placed on. aa5 11:36 Patient has correct armband on for positive identification. aa5 11:38 Marva Adam RN is Primary Nurse. aa5 11:41 Nixon Amato MD is Attending Physician. rn 12:27 X-ray completed. Portable x-ray completed in exam room. Patient tolerated procedure jb2 well. 12:30 XRAY Foot RIGHT 3 View In Process Unspecified. EDMS Administered Medications: No medications were administered Outcome: 13:31 Discharge ordered by . rn 14:15 Patient left the ED. iw Signatures: Dispatcher [employer] EDMS Vincenzo Fraser jb2 Araceli Garibay Irene, RN RN iw Nieto, Roman, MD MD rn Calderon, Audri, RN RN aa5 Corrections: (The following items were deleted from the chart) 11:40 11:36 Presenting complaint: Patient states: "I was carrying some stones and I dropped aa5 them and landed on my right foot". Pt c/o right foot pain. aa5
== END 2018-11-10 14:15 | disposition home or self-care (01) ==
LOC: ER 11:29
DX: S90.31XA Contusion of right foot, initial encounter (principal); W20.8XXA Other cause of strike by thrown, projected or falling object, initial encounter
CPT/HCPCS: 99282

== ENCOUNTER 2021-07-31 11:03 | Observation (INO) | payer OTHER ==
[2021-07-31] MEDS ORDERED: BUPIVACAINE 0.5% PF 10 ML VIAL ONE (12:08)
[2021-07-31] MEDS ORDERED: TETANUS & DIPHTHERIA TOX,ADULT 0.5 ML VIAL ONE (12:09)
--- NOTE | 2021-07-31 12:52 | RAD REPORT ---
EXAM DESCRIPTION: RAD - Hand Left 3 View - 07/31/2021 12:42 pm CLINICAL HISTORY: 2nd finger injury COMPARISON: Hand Left 2 View dated 01/09/2011 FINDINGS: Soft tissue swelling affects the second finger. No fracture or radiopaque foreign body.
--- NOTE | 2021-07-31 14:18 | ER ---
Nurse's Notes [facility] Name: Talat Cortez Age: 46 yrs Sex: Female : 1975 Arrival Date: 07/31/2021 Time: 11:06 Bed 25 Private MD: Diagnosis: Flexor tenosynovitis of the left index finger Presentation: 07/31 11:41 Chief complaint: Patient states: "I stabbed myself with a gardening equipment by jd3 accendent my left pointer finger.". Coronavirus screen: At this time, the client does not indicate any symptoms associated with coronavirus-19. Ebola Screen: No symptoms or risks identified at this time. Initial Sepsis Screen: Does the patient meet any 2 criteria? No. Patient's initial sepsis screen is negative. Does the patient have a suspected source of infection? No. Patient's initial sepsis screen is negative. Risk Assessment: Do you want to hurt yourself or someone else? Patient reports no desire to harm self or others. Onset of symptoms was July 30, 2021. 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 Flu vaccine is not up to date. - Social history:: Smoking status: Patient/guardian denies using tobacco, but has a distant history of tobacco abuse. Screenin:00 Abuse screen: Denies threats or abuse. Nutritional screening: No deficits noted. jb4 Tuberculosis screening: No symptoms or risk factors identified. Fall Risk None identified. Assessment: 14:31 Reassessment: Patient appears in no apparent distress at this time. Patient and/or ss family updated on plan of care and expected duration. Pain level reassessed. Patient is alert, oriented x 3, equal unlabored respirations, skin warm/dry/pink. Pt is aware of admission for further evaluation and treatment. CONSULT Dr. Nieto has been notified by KATELYN Simmons and that patient will go to OR for procedure tomorrow morning. 15:30 Reassessment: Patient appears in no apparent distress at this time. Patient and/or jb4 family updated on plan of care and expected duration. Pain level reassessed. Patient is alert, oriented x 3, equal unlabored respirations, skin warm/dry/pink. 16:30 Reassessment: Patient appears in no apparent distress at this time. Patient and/or jb4 family updated on plan of care and expected duration. Pain level reassessed. Patient is alert, oriented x 3, equal unlabored respirations, skin warm/dry/pink. 17:14 Reassessment: Patient appears in no apparent distress at this time. Patient and/or jb4 family updated on plan of care and expected duration. Pain level reassessed. Patient is alert, oriented x 3, equal unlabored respirations, skin warm/dry/pink. Vital Signs: 11:43 BP 123 / 76; Pulse 69; Resp 18 S; Temp 97.9(TE); Pulse Ox 98% on R/A; Weight 77.11 kg jd3 (R); Height 5 ft. 6 in. (167.64 cm) (R); Pain 8/10; 15:15 BP 117 / 67; Pulse 71; Resp 16; Pulse Ox 96% on R/A; jb4 16:15 BP 124 / 91; Pulse 62; Resp 16; Pulse Ox 99% on R/A; jb4 17:00 BP 119 / 72; Pulse 66; Resp 18; Pulse Ox 98% on R/A; jb4 11:43 Body Mass Index 27.44 (77.11 kg, 167.64 cm) jd3 ED Course: 11:06 Patient arrived in ED. ja2 11:06 Lane Cox PA is PHCP. jmm 11:06 Nixon Amato MD is Attending Physician. jmm 11:42 Triage completed. jd3 11:44 Arm band placed on Patient notified of wait time. jd3 11:59 Guerline Fierro, RORY is Primary Nurse. ss 12:44 Hand Left 3 View XRAY In Process Unspecified. EDMS 14:17 Joshua Alarcon MD is Hospitalizing Provider. jmm 14:31 Inserted saline lock: 22 gauge in right antecubital area, using aseptic technique. Blood collected. 15:00 Patient has correct armband on for positive identification. Placed in gown. Bed in low jb4 position. Call light in reach. Side rails up X 1. Pulse ox on. NIBP on. 15:03 No provider procedures requiring assistance completed. Patient admitted, IV remains in ss place. 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 Exp: ss 07/01/2023. Lot #: [id number]. } Route: IM; Site: right deltoid; 13:50 Follow up: Response: No adverse reaction aa5 13:50 Drug: Marcaine (bupivacaine) (0.5 %) 10 ml {Note: admin by KATELYN Lynn.} Volume: aa5 10 ml; Route: Infiltration; 15:04 Drug: vancoMYCIN 1 grams Route: IVPB; Infused Over: 2 hrs; Site: right antecubital; 17:04 Follow up: Response: No adverse reaction; IV Status: Completed infusion; IV Intake: jb4 250ml 17:22 Drug: Unasyn (ampicillin-sulbactam) 3 grams Route: IVPB; Infused Over: 30 mins; Site: jb4 right antecubital; 17:58 Follow up: Response: No adverse reaction; IV Status: Completed infusion; IV Intake: jb4 100ml Intake: 17:04 IV: 250ml; Total: 250ml. [facility] [place] 17:58 IV: 100ml; Total: 350ml. [facility] [place] Outcome: 14:17 Decision to Hospitalize by Provider. brady 20:17 Admitted to Tele accompanied by nurse, via wheelchair, room 409, Report called to brenna Roach RN 20:17 Condition: stable 20:17 Discharge instructions given to patient, Instructed on the need for admit, Demonstrated understanding of instructions. 20:17 Patient left the ED. arpita Signatures: Dispatcher [employer] EDMS Lane Cox PA PA jmm Calderon, Audri, RN RN aa5 Guerline Fierro RN RN ss Fabián Rey RN RN Domenico Barron RN RN Sunita Walden
--- NOTE | 2021-07-31 14:18 | EDPHYS ---
Physician Documentation [facility] Name: Talat Cortez Age: 46 yrs Sex: Female : 1975 Arrival Date: 07/31/2021 Time: 11:06 Bed 25 Private MD: ED Physician Nixon Amato HPI: 07/31 11:47 This 46 yrs old Female presents to ER via Ambulatory with complaints of Finger Injury. jmm 11:47 The patient or guardian reports injury, pain. Onset: The symptoms/episode jmm began/occurred acutely, just prior to arrival. Modifying factors: The symptoms are alleviated by nothing, the symptoms are aggravated by movement. Is a 46-year-old female with history of Leopoldo-Danlos and Chiari malformation the presents emerged department with complaints of left index finger pain. Patient states she accidentally stabbed herself with a garden spike. Patient denies other injury. Patient is unsure of tetanus immunizations.. 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 Flu vaccine is not up to date. - Social history:: Smoking status: Patient/guardian denies using tobacco, but has a distant history of tobacco abuse. ROS: 11:47 Constitutional: Negative for fever, chills, and weight loss, Cardiovascular: Negative jmm for chest pain, palpitations, and edema, Respiratory: Negative for shortness of breath, cough, wheezing, and pleuritic chest pain. 11:47 MS/extremity: Positive for injury or acute deformity, erythema, pain. 11:47 All other systems are negative. Exam: 11:47 Constitutional: This is a well developed, well nourished patient who is awake, alert, jmm and in no acute distress. Head/Face: atraumatic. Eyes: EOMI, no conjunctival erythema appreciated ENT: Moist Mucus Membranes Neck: Trachea midline, Supple Chest/axilla: Normal chest wall appearance and motion. Cardiovascular: Regular rate and rhythm. No edema appreciated Respiratory: Normal respirations, no respiratory distress appreciated Abdomen/GI: Non distended, soft Back: Normal ROM 11:47 Musculoskeletal/extremity: erythema noted to the left index finger, finger held in flexion, pain is elicited on active extension which radiates into the wrist. . 11:47 Skin: Erythema noted to the left index finger.. 11:47 Neuro: Orientation: is normal, Mentation: is normal, Memory: is normal. 11:47 Psych: Behavior/mood is pleasant, cooperative. Vital Signs: 11:43 BP 123 / 76; Pulse 69; Resp 18 S; Temp 97.9(TE); Pulse Ox 98% on R/A; Weight 77.11 kg jd3 (R); Height 5 ft. 6 in. (167.64 cm) (R); Pain 8/10; 15:15 BP 117 / 67; Pulse 71; Resp 16; Pulse Ox 96% on R/A; jb4 16:15 BP 124 / 91; Pulse 62; Resp 16; Pulse Ox 99% on R/A; jb4 17:00 BP 119 / 72; Pulse 66; Resp 18; Pulse Ox 98% on R/A; jb4 11:43 Body Mass Index 27.44 (77.11 kg, 167.64 cm) jd3 MDM: 11:47 Patient medically screened. [facility] 14:15 Data reviewed: vital signs, nurses notes. Counseling: I had a detailed discussion with love the patient and/or guardian regarding: the historical points, exam findings, and any diagnostic results supporting the discharge/admit diagnosis, radiology results, the need for further work-up and treatment in the hospital. ED course: I discussed the patient with hand surgery who will perform surgery in the morning. I recommended IV antibiotics. I discussed the patient with Dr. Ann who accepted the patient to his service.. 07/31 13:39 Order name: CBC with Diff; Complete Time: 14:49 [facility] 07/31 13:39 Order name: CMP; Complete Time: 14:58 [facility] 07/31 11:54 Order name: Hand Left 3 View XRAY; Complete Time: 12:55 [facility] 07/31 13:58 Order name: SARS-COV-2 RT PCR (Document "Date of Onset" if Symptomatic); Complete Time: [facility] 17:59 07/31 13:38 Order name: Saline Lock; Complete Time: 14:31 [facility] 07/31 15:03 Order name: NPO EDMS 07/31 15:03 Order name: Regular EDMS Administered Medications: 12:26 Drug: Tetanus-Diphtheria Toxoid Adult 0.5 ml {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 Exp: ss 07/01/2023. Lot #: [id number]. } Route: IM; Site: right deltoid; 13:50 Follow up: Response: No adverse reaction aa5 13:50 Drug: Marcaine (bupivacaine) (0.5 %) 10 ml {Note: admin by KATELYN Lynn.} Volume: aa5 10 ml; Route: Infiltration; 15:04 Drug: vancoMYCIN 1 grams Route: IVPB; Infused Over: 2 hrs; Site: right antecubital; ss 17:04 Follow up: Response: No adverse reaction; IV Status: Completed infusion; IV Intake: jb4 250ml 17:22 Drug: Unasyn (ampicillin-sulbactam) 3 grams Route: IVPB; Infused Over: 30 mins; Site: jb4 right antecubital; 17:58 Follow up: Response: No adverse reaction; IV Status: Completed infusion; IV Intake: jb4 100ml Disposition Summary: 07/31/21 14:17 Hospitalization Ordered Hospitalization Status: Observation [facility] Provider: Joshua Alarcon Condition: Stable [facility] Problem: new jmm Symptoms: are unchanged [facility] Bed/Room Type: Standard [facility] Location: Telemetry/MedSurg (observation)(07/31/21 20:16) Room Assignment: [facility](07/31/21 20:16) Diagnosis - Flexor tenosynovitis of the left index finger [facility] Forms: - Medication Reconciliation Form jmm - SBAR form [facility] Signatures: Dispatcher [employer] EDMS Juani Wright RN Lane Byrd PA PA jmm Calderon, Audri RN RN aa5 Guerline Fierro RN RN ss Bryson, James, RN RN jb4 Domenico Mills RN RN jd3 Corrections: (The following items were deleted from the chart) 18:38 14:17 Telemetry/MedSurg (observation) [facility] aa5 18:38 14:17 [facility] aa5 20:16 18:38 [facility] aa5 mw 20:16 18[facility] mw
[2021-07-31] MEDS ORDERED: VANCOMYCIN 1 GM/VIAL ONE (14:22)
[2021-07-31] MEDS ORDERED: NA CHLORIDE 0.9% 250 ML ONE (14:22)
[2021-07-31 14:36] LABS: Absolute Lymphocytes (CBC) 1.8 K/uL (0.7-4.9); Hematocrit 37.4 % (36.0-45.0); MPV 8.8 fL (7.6-11.3); RBC Red Blood Cell Count 4.26 M/uL (3.86-4.86)
--- NOTE | 2021-07-31 14:42 | P.HP ---
Certification for Inpatient Patient will require the following post-hospital care: None Practitioner: I am a practitioner with admitting privileges, knowledge of patient current condition, hospital course, and medical plan of care. Services: Services provided to patient in accordance with Admission requirements found in Title 42 Section 412.3 of the Code of Federal Regulations Patient History Date of Service: 07/31/21 Reason for admission: Flexeril tenosinivitis of left index finger. History of Present Illness: 46-year-old female patient with no significant medical history was evaluated in the emergency room for episode of pain and swelling on the left index finger. She was doing some trimming in the garden when she had a puncture injury to the left index finger. she subsequently developed throbbing pain with erythema and swelling of the finger. No issues with purulent discharge however patient was noted to have possible tenosynovitis warranting evaluation so she was started on IV antibiotic therapy and was discussed with surgeon who recommended inpatient care for possible debridement in a.m. Allergies No Known Allergies Allergy (Unverified 07/31/21 14:11) Home Medications: Magnesium Chloride [Slow-Mag] 64 mg PO DAILY #7 tab 04/27/17 Review of Systems General: Unremarkable Eyes: Unremarkable ENT: Unremarkable Respiratory: Unremarkable Cardiovascular: Unremarkable Gastrointestinal: Unremarkable Genitourinary: Unremarkable Musculoskeletal: Unremarkable (left index finger pain.) Neurological: Unremarkable Physical Examination - Physical Exam General: Alert, Oriented x3 HEENT: Atraumatic, Normocephalic Neck: Supple Respiratory: Normal air movement Cardiovascular: Regular rate/rhythm, Normal S1 S2 Gastrointestinal: Soft and benign Musculoskeletal: Swelling, Tenderness, Other (involving the left index finger) Neurological: Normal speech Assessment and Plan - Plan 1. Synovitis of left index finger: Had vancomycin started for infection. Tdap does was given. We will continue as needed morphine for pain control with Tylenol. Surgeon to evaluate for incision and drainage procedure. Prophylaxis: Lovenox physical prophylaxis. CODE STATUS: Full code. - Advance Directives Does patient have a Living Will: No Does patient have a Durable POA for Healthcare: No
[2021-07-31 14:58] LABS: Albumin 3.3 g/dL (3.4-5.0); Bilirubin Total 0.3 mg/dL (0.2-1.0); Potassium 3.5 mmol/L (3.5-5.1); Protein, Total 6.4 g/dL (6.4-8.2)
[2021-07-31] MEDS ORDERED: ONDANSETRON 4 MG/2 ML VIAL IV PRN (14:58)
[2021-07-31] MEDS ORDERED: MORPHINE 2 MG/ML SYR IV PRN (15:06)
[2021-07-31] MEDS ORDERED: ACETAMINOPHEN 325 MG TABLET PO PRN (15:20)
[2021-07-31] MEDS: ENOXAPARIN 40 MG/0.4 ML SQ SCH (16:00)
[2021-07-31] MEDS ORDERED: NA CHLORIDE 0.9% 100 ML IV ONE (17:15)
[2021-07-31] MEDS ORDERED: AMPICILLIN/SULBACTAM 3GM/VIAL ONE (17:15)
[2021-07-31] MEDS: NA CHLORIDE 0.9% 1,000 ML IV SCH (21:17)
[2021-07-31 23:00] VITALS: BMI 25.2
[2021-08-01] MEDS ORDERED: VANCOMYCIN 500 MG/VIAL ONE (01:09)
[2021-08-01] MEDS: VANCOMYCIN 1.25 GM in NA CHLORIDE 0.9% 250 ML IVPB SCH ×2 (01:13→14:09)
[2021-08-01] MEDS: NA CHLORIDE 0.9% 1,000 ML IV SCH (04:20)
[2021-08-01] MEDS: ENOXAPARIN 40 MG/0.4 ML SQ SCH (08:08)
[2021-08-01] MEDS ORDERED: FENTANYL CITR 100 MCG/2 ML ONE (08:36)
[2021-08-01] MEDS ORDERED: dexAMETHasone 10 MG/ML VIAL ONE (08:36)
[2021-08-01] MEDS ORDERED: KETOROLAC 30 MG/ML INJ ONE (08:36)
[2021-08-01] MEDS ORDERED: MIDAZOLAM HCL 2 MG/2 ML INJ ONE (08:36)
[2021-08-01] MEDS ORDERED: LIDOCAINE 2% MPF 5 ML VIAL ONE (08:36)
[2021-08-01] MEDS ORDERED: propofoL 200 MG/20 ML VIAL IV ONE (08:36)
[2021-08-01] MEDS ORDERED: ONDANSETRON 4 MG/2 ML VIAL ONE (08:37)
[2021-08-01] MEDS ORDERED: Ringers Lactate 1,000 ML IV ONE (08:38)
[2021-08-01 08:40] LABS: Specific Gravity 1.015 (1.005-1.030)
[2021-08-01 09:24] VITALS: O2SAT 96
--- NOTE | 2021-08-01 12:48 | RAD REPORT ---
EXAM DESCRIPTION: MRI - Hand Left W/Wo - 08/01/2021 11:40 am CLINICAL HISTORY: eval of tenosynovitis COMPARISON: Hand Left 3 View dated 07/31/2021 TECHNIQUE: Multi planar imaging of the left hand performed using T1 weighted, T2 weighted, T2 fat sa turation and postcontrast T1 fat saturation sequencing. A 16 milliliter MultiHance contrast volume wa s utilized. FINDINGS: No occult fracture, bone bruise or marrow replacing process. No acute bone or joint findin g in the left second digit. Second digit extensor tendon shows no evidence for disruption. The tendon is normal in size and signal intensity. No abnormal fluid in the extensor sheath and no abnormal enh ancement. Second digit flexor tendon also is intact. The tendon itself shows normal size and signal intensity s imilar to the third- fifth flexor tendons. There is a minimal amount of fluid signal from the DIP florina nt level proximally to the MCP joint level. Into the palm soft tissues the flexor tendon has no signa l abnormality of the tendon or surrounding tissues. The third-fifth flexor tendons and tendon sheaths are unremarkable. Edema signal is present in the fatty tissues of the second digit and minimally in the proximal third digit. There is no focal fluid collection in the soft tissues. No periarticular enhancement of the se cond digit. IMPRESSION: Mild tenosynovitis signal pattern involving the left second digit flexor tendon and tend on sheath. Edema signal in the second digit soft tissues without abscess or focal fluid collection. No bone bruise or fracture. No abnormal joint fluid or intra-articular abnormality.
--- NOTE | 2021-08-01 15:00 | P.DS ---
Admission Date: 07/31/21 Discharge Date: 08/01/21 Disposition: ROUTINE DISCHARGE Discharge Condition: GOOD Reason for Admission: Flexeril tenosinivitis of left index finger. Brief History of Present Illness: 46-year-old female patient with no significant medical history was evaluated in the emergency room for episode of pain and swelling on the left index finger. She was doing some trimming in the garden when she had a puncture injury to the left index finger. she subsequently developed throbbing pain with erythema and swelling of the finger. No issues with purulent discharge however patient was noted to have possible tenosynovitis warranting evaluation so she was started on IV antibiotic therapy and was discussed with surgeon who recommended inpatient care for possible debridement in a.m. Hospital Course: Patient was prepared for incision and drainage procedure of the left index finger however she declined to go along with procedure stating that she does not feel she has significant tissue injury/abscess formation to warrant this. She felt improved with IV doses of vancomycin x2 since admission and also pain control with morphine and Tylenol. She would try oral antibiotic on discharge and follow-up with her primary care doctor. We did explain to patient the implication of her decision as if there is significant inflammation and healing by cicatrization there could be loss of function of the finger. She requested a soft tissue imaging and she would not go along with surgical procedure. MRI of the index finger was done and there was finding of mild tenosynovitis with no abscess formation and there was mild edema. Patient was deemed stable for discharge home to complete oral course of Bactrim and to follow-up with her primary care doctor within the week. She is to return to the emergency room if she continues to have episode of increased swelling, worsening pain, drainage from puncture wound and or chills/rigor. Vital Signs/Physical Exam: Temp Pulse Resp BP Pulse Ox 98 F 73 18 117/65 98 08/01/21 12:00 08/01/21 12:00 08/01/21 12:00 08/01/21 12:00 08/01/21 12:00 General: Alert, Oriented x3 HEENT: Atraumatic, Normocephalic Neck: Supple Respiratory: Normal air movement Cardiovascular: Regular rate/rhythm, Normal S1 S2 Gastrointestinal: Soft and benign Musculoskeletal: Swelling (Slightly swollen left index finger) Neurological: Normal speech, Normal strength at 5/5 x4 extr, Cranial nerves 3-12 intact Laboratory Data at Discharge: WBC 5.1 K/uL (4.3-10.9) 07/31/21 14:16 Hgb 12.8 g/dL (12.0-15.0) 07/31/21 14:16 Hct 37.4 % (36.0-45.0) 07/31/21 14:16 Plt Count 283 K/uL (152-406) 07/31/21 14:16 Sodium 141 mmol/L (136-145) 07/31/21 14:16 Potassium 3.5 mmol/L (3.5-5.1) 07/31/21 14:16 BUN 11 mg/dL (7-18) 07/31/21 14:16 Creatinine 0.74 mg/dL (0.55-1.3) 07/31/21 14:16 Glucose 102 mg/dL (74-106) 07/31/21 14:16 Total Bilirubin 0.3 mg/dL (0.2-1.0) 07/31/21 14:16 AST 10 U/L (15-37) L 07/31/21 14:16 ALT 19 U/L (12-78) 07/31/21 14:16 Alkaline Phosphatase 52 U/L (45-117) 07/31/21 14:16 Home Medications: Morphine Sulfate [Ms Contin] 1 tab PO Q12H 08/01/21 Sulfamethoxazole/Trimethoprim [Bactrim Ds Tablet] 1 each PO BID 7 Days #14 tablet 08/01/21 New Medications: Sulfamethoxazole/Trimethoprim [Bactrim Ds Tablet] 1 each PO BID 7 Days #14 tablet Diet: Regular Followup: GALEN CHOI [Primary Care Provider] -
[2021-08-01 16:26] VITALS: BP 108/55; TEMP 98.6
--- NOTE | 2021-08-01 20:45 | HP ---
Date of Admission: 07/31/2021 History Of Present Illness: Ms. Gilliland is a 46-year-old white female, right-hand dominant, who pu nctured left index finger for the staple. She developed infection per the emergency room with tenosynovitis of the index finger, left. She has Leopoldo-Danlos syndrome hypermobility type. No surgery. Social History: Does smoke. Does drink. Allergies: NO ALLERGIES. Medication: She is on MS Contin. Physical Examination: Extremities: She has a puncture wound on the left index finger, dorsal surface, radial side, and fle xion is painful over the proximal phalanx. Wound was swollen. Vital Signs: She is 5 feet 6 inches and 110 pounds. Assessment: Infection, left index finger. Plan: Incision and drainage. DONELL Voice ID: [id number]
== END 2021-08-01 17:36 | disposition home or self-care (01) ==
LOC: ER 11:03 → ERHOLD 14:59 → 4TH 20:37
PROVIDERS: ADMIT Internal Medicine Nephrology; ATTEND Internal Medicine Nephrology
DX: M65.842 Other synovitis and tenosynovitis, left hand (principal); L08.9 Local infection of the skin and subcutaneous tissue, unspecified; Q79.62 Hypermobile Ehlers-Danlos syndrome; Z23 Encounter for immunization; Z20.822 Contact with and (suspected) exposure to COVID-19
CPT/HCPCS: 85025; 36415; 81025; 80053; 73130; 73220; 90714; U0003; A9577; J1650; J3370 ×2; J2270; J7050 ×2; J7030; J0295; G0378; J1100; J2250; J2405; J2704; J3010; J7120

== ENCOUNTER 2025-02-01 10:02 | Emergency (ER) | payer OTHER ==
[2025-02-01] MEDS ORDERED: KETOROLAC 30 MG/ML INJ ONE (10:28)
--- NOTE | 2025-02-01 10:31 | EDPHYS ---
Physician Documentation [facility] Name: Talat Cortez Age: 49 yrs Sex: Female : 1975 Arrival Date: 02/01/2025 Time: 10:02 Bed IW1 Private MD: ED Physician Nixon Amato HPI: 02/01 10:26 This 49 yrs old Female presents to ER via Ambulatory with complaints of Facial rn Swelling, Toothache. 10:26 Patient reports right lower dental swelling and pain, worse over the last 2 days. Has rn had multiple dental issues and surgeries. Patient reports pain was moderate last night, improved today. No difficulty breathing.. 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 - Infectious Disease History:: Denies. - Social history:: Smoking status: Patient denies any tobacco usage or history of. - Family history:: not pertinent. - Hospitalizations: : No recent hospitalization is reported. ROS: 10:26 Constitutional: Negative for fever, chills, and weight loss, ENT: Positive for right rn lower dental pain and swelling Exam: 10:26 Constitutional: This is a well developed, well nourished patient who is awake, alert, rn and in no acute distress. ENT: Poor dentition, right lower molar with That is loose and has deep cavity. No abscess noted but erythema of the gingival surface noted. No stridor. Vital Signs: 10:21 BP 142 / 84; Pulse 71; Resp 16; Temp 98.2; Pulse Ox 99% on R/A; Weight 77.11 kg; Height hb 5 ft. 6 in. ; Pain 5/10; 10:21 Body Mass Index 27.44 (77.11 kg, 167.64 cm) hb 10:21 Pain Scale: Adult hb MDM: 10:07 Medical Screening Exam initiated rn 10:29 Differential diagnosis: dental caries, dental abscess. Data reviewed: vital signs, rn nurses notes, and as a result, I will discharge patient. Counseling: I had a detailed discussion with the patient and/or guardian regarding the historical points, exam findings, and any diagnostic results supporting the discharge/admit diagnosis, the need for outpatient follow up, to return to the emergency department if symptoms worsen or persist or if there are any questions or concerns that arise at home. Special discussion: I discussed with the patient/guardian in detail that at this point there is no indication for admission to the hospital. It is understood, however, that if the symptoms persist or worsen the patient needs to return immediately for re-evaluation. Based on the history and exam findings, there is no indication for further emergent testing or inpatient evaluation. I discussed with the patient/guardian the need to see a dentist for further evaluation of the symptoms. 10:29 ED course: No evidence of abscess or fascial extension at this time. No need for rn emergent procedure at this time or transfer. Will discharge home with antibiotics pain medication and recommended urgent follow-up with oral surgeon/dentist. Administered Medications: 10:32 Drug: Clindamycin PO 300 mg PO once Route: PO; me1 10:49 Follow up: Response: No adverse reaction me1 10:32 Drug: Ketorolac IM 30 mg IM once Route: IM; Site: right deltoid; me1 10:49 Follow up: Response: No adverse reaction; Pain is decreased me1 Disposition Summary: 02/01/25 10:30 Discharge Ordered Notes: Location: Home rn Problem: new rn Symptoms: have improved rn Condition: Stable rn Diagnosis - Dentalgia rn Followup: rn - With: Private Physician - When: As needed - Reason: Recheck today's complaints, Re-evaluation by your physician Discharge Instructions: - Discharge Summary Sheet rn - Dental Pain rn Forms: - Medication Reconciliation Form rn - 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
--- NOTE | 2025-02-01 10:31 | ER ---
Nurse's Notes [facility] Name: Talat Cortez Age: 49 yrs Sex: Female : 1975 Arrival Date: 02/01/2025 Time: 10:02 Bed IW1 Private MD: Diagnosis: Dentalgia Presentation: 02/01 10:20 Chief complaint: Right lower molar pain and right sided facial swelling x 3 days. hb Coronavirus screen: At this time, the client does not indicate any symptoms associated with coronavirus-19. Ebola Screen: No symptoms or risks identified at this time. Initial Sepsis Screen: Does the patient meet any 2 criteria? No. Patient's initial sepsis screen is negative. Does the patient have a suspected source of infection? No. Patient's initial sepsis screen is negative. Risk Assessment: Do you want to hurt yourself or someone else? Patient reports no desire to harm self or others. 10:20 Method Of Arrival: Ambulatory hb 10:21 Onset of symptoms was January 29, 2025. hb 10:21 Acuity: LAVELL 4 hb Triage Assessment: 10:20 General: Appears uncomfortable, well groomed, well developed, well nourished, Behavior me1 is calm, cooperative, appropriate for age, Reports Right lower molar pain and right sided facial swelling x 3 days. Pain: Complains of pain in lower right third molar Pain does not radiate. Pain currently is 5 out of 10 on a pain scale. Quality of pain is described as aching, Pain began 2-3 days ago. Is continuous. EENT: Reports pain in lower right third molar. Neuro: Level of Consciousness is awake, alert, obeys commands, Oriented to person, place, time, situation, Appropriate for age. Cardiovascular: Patient's skin is warm and dry. Respiratory: Airway is patent Respiratory effort is even, unlabored, Respiratory pattern is regular, symmetrical. GI: No signs and/or symptoms were reported involving the gastrointestinal system. : No signs and/or symptoms were reported regarding the genitourinary system. Derm: Skin is intact, is healthy with good turgor, Skin is pink, warm \T\ dry. Musculoskeletal: Circulation, motion, and sensation intact. Range of motion: intact in all extremities. 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 - Infectious Disease History:: Denies. - Social history:: Smoking status: Patient denies any tobacco usage or history of. - Family history:: not pertinent. - Hospitalizations: : No recent hospitalization is reported. Screenin:48 [facility] ED Fall Risk Assessment (Adult) History of falling in the last 3 months, me1 including since admission No falls in past 3 months (0 pts) Confusion or Disorientation No (0 pts) Intoxicated or Sedated No (0 pts) Impaired Gait No (0 pts) Mobility Assist Device Used No (0 pt) Altered Elimination No (0 pt) Score/Fall Risk Level 0 - 2 = Low Risk Maintained a safe environment, Provided non-skid footwear, Hourly rounding (assess needs \T\ fall precautionary measures) done. Abuse screen: Denies threats or abuse. Nutritional screening: No deficits noted. Tuberculosis screening: No symptoms or risk factors identified. Assessment: 10:48 General: See triage assessment. me1 Vital Signs: 10:21 BP 142 / 84; Pulse 71; Resp 16; Temp 98.2; Pulse Ox 99% on R/A; Weight 77.11 kg; Height hb 5 ft. 6 in. ; Pain 5/10; 10:21 Body Mass Index 27.44 (77.11 kg, 167.64 cm) hb 10:21 Pain Scale: Adult hb ED Course: 10:06 Patient arrived in ED. im 10:07 Nixon Amato MD is Attending Physician. rn 10:21 Arm band placed on. hb 10:23 Triage completed. hb 10:48 Patient has correct armband on for positive identification. Provided Education on: POC. me1 Verbalized understanding.. 10:48 No provider procedures requiring assistance completed. Patient did not have IV access me1 during this emergency room visit. Administered Medications: 10:32 Drug: Clindamycin PO 300 mg PO once Route: PO; me1 10:49 Follow up: Response: No adverse reaction me1 10:32 Drug: Ketorolac IM 30 mg IM once Route: IM; Site: right deltoid; me1 10:49 Follow up: Response: No adverse reaction; Pain is decreased me1 Medication: 10:48 VIS not applicable for this client. me1 Outcome: 10:30 Discharge ordered by . rn 10:50 Discharged to home ambulatory, me1 10:50 Condition: stable 10:50 Discharge instructions given to patient, Instructed on discharge instructions, follow up and referral plans. medication usage, Demonstrated understanding of instructions, follow-up care, medications, Prescriptions given X 2, 10:50 Patient left the ED. me1 Signatures: Nixon Amato MD MD rn Baxter, Heather, RN RN Natalie Gavin Michelle, RN RN me1 Corrections: (The following items were deleted from the chart) 10:23 10:20 Chief complaint: Right lower molar pain and right sided facial swelling x weeks hbhb 10:24 10:21 BP 142 / 84; Pulse 71bpm; Resp 16bpm; Pulse Ox 99% RA; Temp 98.2F; hb hb 10:37 10:20 Chief complaint: Right lower molar pain and right sided facial swelling x 3 days me1 hb
[2025-02-01 12:55] VITALS: BP 142/84; TEMP 98.2; O2SAT 99
== END 2025-02-01 10:50 | disposition home or self-care (01) ==
LOC: ER 10:02
DX: K08.89 Other specified disorders of teeth and supporting structures (principal)
CPT/HCPCS: 96372; 99284; J1885